=== PATIENT | female | born 1985 | race Two or more races ===

== ENCOUNTER 2016-09-16 15:00 | Emergency (ER) | payer MEDICAID, OTHER, SELFPAY ==
[~2016-09-16] VITALS: Ht 152.4 cm; Wt 70.4 kg
[2016-09-16] MEDS ORDERED: SODIUM CHLORIDE FLUSH 10ML SYR IVF ONE (15:30)
[2016-09-16] MEDS ORDERED: ONDANSETRON 2MG/ML, 2ML IVPush ONE (15:30)
[2016-09-16] MEDS ORDERED: ONDANSETRON 2MG/ML, 2ML ONE (15:30)
[2016-09-16] MEDS ORDERED: MORPHINE SULFATE 4 MG/ML, 1ML ONE (15:30)
[2016-09-16] MEDS ORDERED: MORPHINE SULFATE 4 MG/ML, 1ML IVPush PRN (15:30)
[2016-09-16] MEDS ORDERED: SODIUM CHLORIDE 0.9% 1,000ML IVBOLUS ONE (15:30)
[2016-09-16 16:11] LABS: ASPARTATE AMINO TRANSFERASE 12 U/L (15-37); BLOOD UREA NITROGEN 13 mg/dL (7-18)
[2016-09-16 16:52] VITALS: BP 121/73
== END 2016-09-16 17:26 | disposition home or self-care (01) ==
LOC: ED 17:20
DX: R10.32 Left lower quadrant pain (principal); K85.00 Idiopathic acute pancreatitis without necrosis or infection; R10.2 Pelvic and perineal pain; N10 Acute pyelonephritis
CPT/HCPCS: 36415; 80053; 81001; 83690; 84703; 85025; 87077; 87086; 96374; 96375; 99284; J2405; J7030; 87186; 96361

== ENCOUNTER 2016-10-21 12:43 | Emergency (ER) | payer MEDICAID ==
[~2016-10-21] VITALS: Ht 160 cm; Wt 67.9 kg
[2016-10-21 12:45] VITALS: BP 113/73
[2016-10-21] MEDS ORDERED: IBUPROFEN 200 MG TABLET PO ONE (13:30)
[2016-10-21] MEDS ORDERED: ONDANSETRON ODT 4 MG PO ONE (13:30)
[2016-10-21] MEDS ORDERED: HYDROcodone/APAP 5/325 TABLET PO ONE (13:30)
[2016-10-21] MEDS ORDERED: PHENAZOPYRIDINE 200 MG TABLET PO ONE (13:30)
[2016-10-21 13:38] LABS: ASPARTATE AMINO TRANSFERASE 23 U/L (15-37); BLOOD UREA NITROGEN 16 mg/dL (7-18)
[2016-10-21] MEDS ORDERED: ONDANSETRON ODT 4 MG ONE (13:39)
[2016-10-21] MEDS ORDERED: PHENAZOPYRIDINE 200 MG TABLET ONE (13:39)
[2016-10-21] MEDS ORDERED: HYDROcodone/APAP 5/325 TABLET ONE (13:39)
[2016-10-21] MEDS ORDERED: IBUPROFEN 200 MG TABLET ONE (13:39)
[2016-10-21] MEDS ORDERED: CIPROFLOXACIN 500 MG TABLET PO ONE (14:00)
[2016-10-21] MEDS ORDERED: CIPROFLOXACIN 500 MG TABLET ONE (14:14)
== END 2016-10-21 14:54 | disposition home or self-care (01) ==
LOC: ED 14:48
DX: N30.00 Acute cystitis without hematuria (principal); R10.2 Pelvic and perineal pain
CPT/HCPCS: 36415; 80053; 81001; 83690; 84703; 85025; 87077; 87086; 87186; 99284; Q0162

== ENCOUNTER 2016-11-24 09:50 | Emergency (ER) | payer MEDICAID ==
[~2016-11-24] VITALS: Ht 162.6 cm; Wt 73.6 kg
[2016-11-24] MEDS ORDERED: KETOROLAC 30 MG/1 ML ONE (10:23)
[2016-11-24] MEDS ORDERED: OXYcodone/APAP 5/325MG TABLET ONE (10:23)
[2016-11-24] MEDS ORDERED: DIAZEPAM 5 MG TABLET ONE (10:23)
[2016-11-24] MEDS ORDERED: KETOROLAC 30 MG/1 ML IM ONE (10:30)
[2016-11-24] MEDS ORDERED: DIAZEPAM 5 MG TABLET PO ONE (10:30)
[2016-11-24] MEDS ORDERED: OXYcodone/APAP 5/325MG TABLET PO ONE (10:30)
[2016-11-24] MEDS ORDERED: HYDROmorphone 1 MG/ML, 1ML ONE (11:32)
[2016-11-24] MEDS ORDERED: HYDROmorphone 1 MG/ML, 1ML IM ONE (12:00)
[2016-11-24 14:13] VITALS: BP 117/67
== END 2016-11-24 14:16 | disposition home or self-care (01) ==
LOC: ED 10:12
DX: M62.838 Other muscle spasm (principal)
CPT/HCPCS: 72050; 96372; 99284; J1170; J1885

== ENCOUNTER 2017-08-14 10:57 | Emergency (ER) | payer MEDICAID ==
[~2017-08-14] VITALS: Ht 162.6 cm; Wt 69.8 kg
[2017-08-14 11:01] VITALS: BP 117/73
[2017-08-14 11:49] LABS: BASOPHILS # (AUTO) 0.03 x10^3/uL (0-0.1); BASOPHILS % (AUTO) 0 % (0-1); EOSINOPHILS # (AUTO) 0.21 x10^3/uL (0-0.4); EOSINOPHILS % (AUTO) 4 % (1-7); LYMPHOCYTES # (AUTO) 2.16 x10^3/uL (1-3.4); LYMPHOCYTES % (AUTO) 36 % (22-44); MD NO; MEAN CORPUSCULAR HEMOGLOBIN 29.5 pg (27.0-34.8); MEAN CORPUSCULAR HGB CONC 33.8 g/dL (32.4-35.8); MEAN CORPUSCULAR VOLUME 87.2 fL (80-100); MEAN PLATELET VOLUME 8.4 fL (7.4-10.4); MONOCYTES # (AUTO) 0.25 x10^3/uL (0.2-0.8); MONOCYTES % (AUTO) 4 % (2-9); NEUTROPHILS # (AUTO) 3.28 x10^3/uL (1.8-6.8); NEUTROPHILS % (AUTO) 55 % (42-75); PLATELET COUNT 246 x10^3/uL (130-400); RED BLOOD COUNT 4.49 x10^6/uL (3.82-5.3); RED CELL DISTRIBUTION WIDTH 12.9 % (9.6-15.2)
[2017-08-14 11:57] LABS: ALBUMIN 3.7 g/dL (3.4-5.0); ANION GAP 5 mmol/L (5-15); CALCIUM 8.3 mg/dL (8.5-10.1); CHLORIDE 111 mmol/L (98-107)
[2017-08-14 12:00] LABS: ALANINE AMINOTRANSFERASE 21 U/L (12-78); ALKALINE PHOSPHATASE 81 U/L (45-117); BILIRUBIN,TOTAL 0.6 mg/dL (0.2-1.0); CREATININE 0.62 mg/dL (0.55-1.02); TOTAL PROTEIN 7.3 g/dL (6.4-8.2)
== END 2017-08-14 12:55 | disposition home or self-care (01) ==
LOC: ED 12:49
DX: T78.49XA Other allergy, initial encounter (principal); R21 Rash and other nonspecific skin eruption; X58.XXXA Exposure to other specified factors, initial encounter
CPT/HCPCS: 36415; 80053; 85025; 99284; J7512; Q0177